=== PATIENT | male | born 1990 | race Caucasian/White ===

== ENCOUNTER 2017-10-20 22:47 | Emergency (ER) | payer MEDICAID ==
[~2017-10-20] VITALS: Ht 175.3 cm; Wt 63.5 kg
[2017-10-20 22:57] VITALS: Ht 175.3 cm; Wt 63.5 kg
[2017-10-21 01:02] VITALS: BP 104/57
== END 2017-10-21 01:02 | disposition home or self-care (01) ==
LOC: ED 22:47
DX: F31.9 Bipolar disorder, unspecified (principal)
CPT/HCPCS: 83880; G0480